=== PATIENT | male | born 1955 | race African-American/Black ===

== ENCOUNTER 2020-07-04 12:07 | Emergency (ER) | payer SELFPAY ==
[2020-07-04 12:52] LABS: #Eosinphils 0.7 thou/uL (0.0-0.7); #Lymphocytes 1.8 thou/uL (1.20-3.40); #Neutrophils 5.2 thou/uL (1.40-6.50); %Basophils 0.5 % (0.0-1.0); %Eosinophils 8.1 % (0.0-10.0); %Lymphocytes 20.7 % (21.0-51.0); %Monocytes 10.8 % (0.0-10.0); %Neutrophils 59.9 % (42.0-75.0); Hemoglobin 14.2 g/dL (14.0-18.0); Mean Corpuscular HGB CONC 33.1 g/dL (32.0-36.0); Mean Corpuscular Hemoglobin 28.4 pg (27.0-31.0); Mean Corpuscular Volume 85.8 fL (78.0-98.0); Mean Platelet Volume 7.5 fL (7.4-10.4); Platelet Count 222 thou/uL (130-400); RBC Distribution Width 12.5 % (11.5-14.5); Red Blood Cell (RBC) Count 4.99 mill/uL (4.70-6.10); White Blood Cell (WBC) Count 8.8 thou/uL (4.8-10.8)
[2020-07-04 13:22] LABS: ALT (SGPT) 11 U/L (8-55); AST (SGOT) 22 U/L (5-34); Alkaline Phosphatase 72 U/L (40-110); Anion Gap 15 mmol/L (10-20); BUN (Urea Nitrogen) 12 mg/dL (8.4-25.7); Bilirubin, Total 1.2 mg/dL (0.2-1.2); Calc. Creatinine Clearance 0 mL/min (70-130); Calcium 8.9 mg/dL (7.8-10.44); Carbon Dioxide 24 mmol/L (23-31); Chloride 96 mmol/L (98-107); Estimated GFR-MDRD 63; Globulin 3.7 g/dL (2.4-3.5); Glucose 71 mg/dL (80-115); Potassium 4.6 mmol/L (3.5-5.1); Protein, Total 7.7 g/dL (5.8-8.1); Sodium 130 mmol/L (136-145)
[2020-07-04] MEDS ORDERED: Iopamidol-370 76% 500 ML 1 ML ONE (13:51)
[2020-07-04] MEDS ORDERED: Morphine 4 MG/ML VIAL ONE (15:20)
[2020-07-04] MEDS ORDERED: Ondansetron PF 4 MG/2 ML Vial ONE (15:20)
--- NOTE | 2020-07-04 16:30 | CT ---
CT maxillofacial with contrast: 07/04/2020 HISTORY: 65-year-old male with facial swelling and tooth pain. FINDINGS: There are periapical lucencies involving several teeth, including bilateral maxilla and bilateral man dible. This includes a large a an 11 x 9 x 6 mm osseous defect in the right maxilla alveolar ridge, surround ing right molar tooth that consists of 3 roots disconnected from each other, with absence of its crown.. There is a 5 mm lateral osseous cortical defect at the buccal side of this osseous defect. There is an approximately 13 x 7 x 9 mm osseous defect at the alveolar ridge of the left mandibular a ngle, with absence of corresponding teeth in that location. There is a subtle finding of a thin, 13 x 3 x 9 mm left buccal space low-attenuation lesion with thin rim enhancement consistent with a gingival abscess (axial image 58 of 75, series 2; coronal image 55 of 81, series 400). Bone windows reveal a tiny periapical lucency surrounding the root of the left lower first molar. Fro m this periapical lucency, a very thin short linear osseous channel communicates with the buccal space abscess (axial image 60 of 75, series 3). That particular to this has a 4 mm focal lateral luce ncy inferior to the crown, apparently reaching the pulp. Right-sided TMJ DJD. No acute fracture. There is diffuse, strong enhancement of bilateral parotid, sublingual, and submandibular glands. There is enhancement of mildly enlarged submental level 1 reactive lymph nodes. There is diffuse soft tissue edema around the mandible, especially on the left side, involving superf icial soft tissues and buccal space, with increased enhancement. No other focal fluid collection is identified to indicate any definite drainable abscess elsewhere. H owever, streak artifact from dental work obscures portions of the oral cavity and portions of the buccal spaces. Soft tissue thickening of retromolar trigone bilaterally. IMPRESSION: 1.) Evidence for Dental abscess involving left lower jaw: Small, thin left buccal space low-attenuati on lesion adjacent to a tiny linear osseous tract around periapical lucency of a left lower first molar carious tooth. 2) Diffuse soft tissue edema of the lower face, especially around the left jaw, consistent with cellu litis 3) extensive poor dentition, including multiple periapical lucencies, the largest of which involves a right upper molar tooth.
== END 2020-07-04 18:00 | disposition home or self-care (01) ==
LOC: ERS 12:07
DX: K04.7 Periapical abscess without sinus (principal); K02.9 Dental caries, unspecified
CPT/HCPCS: 36415; 70487; 80053; 85025; 96374; 96375; J2270; J2405; Q9967